=== PATIENT | male | born 1960 | race Caucasian/White ===

== ENCOUNTER 2024-04-30 21:29 | Inpatient (IN) | payer MEDICARE, MEDICAID ==
[~2024-04-30] VITALS: Ht 165.1 cm; Wt 80.9 kg
[~2024-04-30 21:29] MED LIST: CYCL-524 PO; ILOP12TA2 PO; METF-436 PO; MIRT-88 PO; OMEP20CA15 PO; PROP40TA7 PO; SERT100T PO
[2024-04-30 21:54] LABS: HEMOGLOBIN 12.2 g/dl (14.0-17.9); MEAN CORPUSCULAR VOLUME 85.3 FL (78-98); MONOCYTES # (AUTO) 1.4 X10'3 (0-0.9); PLATELET COUNT 204 X10'3 (140-440); RED CELL DISTRIBUTION WIDTH 14.5 % (11.5-14.5)
[2024-04-30 21:56] LABS: BASOPHILS # (AUTO) 0.1 X10'3 (0-0.2); BASOPHILS % (AUTO) 0.5 % (0-1); EOSINOPHILS % (AUTO) 0 % (0-6); HEMATOCRIT 36.5 % (42.0-52.0); LYMPHOCYTES # (AUTO) 0.3 X10'3 (1.1-4.8); LYMPHOCYTES % (AUTO) 1.3 % (21-51); MEAN CORPUSCULAR HEMOGLOBIN 28.5 PG (27.0-31.0); MEAN CORPUSCULAR HGB CONC 33.4 g/dL (33.0-36.5); MONOCYTES % (AUTO) 6.7 % (2-12); NEUTROPHILS # (AUTO) 18.5 X10'3 (1.8-7.7); NEUTROPHILS % (AUTO) 91.5 % (42-75); RED BLOOD COUNT 4.28 X10'6 (4.70-6.10); WHITE BLOOD COUNT 20.2 X10'3 (4.5-11.0)
[2024-04-30 22:13] LABS: ALBUMIN 3.2 G/DL (3.4-5.0); ANION GAP 12 (8-16); BLOOD UREA NITROGEN 19 MG/DL (7-18); BUN/CREATININE RATIO 11.3 (10.0-20.0); CALCIUM 8.9 MG/DL (8.5-10.1); CHLORIDE 102 MMOL/L (99-107); CREATININE 1.68 MG/DL (0.60-1.10); GLUCOSE 239 MG/DL (70-104); POTASSIUM 3.7 MMOL/L (3.5-5.1); PRO BRAIN NATRIURETIC PEPTIDE 412 PG/ML (0-125); SODIUM 139 MMOL/L (135-145); TOTAL CARBON DIOXIDE 24.7 MMOL/L (24-32); eCRCL 40 ML/MIN; eGFR 42 ML/MIN
[2024-05-01] MEDS: normal saline 1000ml 1,000 ML IV ONE (01:16)
[2024-05-01] MEDS: normal saline 1000ML IV soln IVB ONE (01:23)
[2024-05-01 01:31] LABS: APTT 29 SECONDS (22-32); INR 1.1 INR; PROTHROMBIN TIME 11.2 SECONDS (9.0-12.0)
[2024-05-01 03:25] LABS: BILIRUBIN,URINE NEGATIVE (Neg); CLARITY,URINE SLIGHTLY CLOUDY (Clear); COLOR,URINE YELLOW (Yellow); GLUCOSE, URINE 250 mg/dl (Neg); KETONES,URINE TRACE mg/dl (Neg); LEUKOCYTE ESTERASE ,URINE TRACE (Neg); NITRITES, URINE NEGATIVE (Neg); OCCULT BLOOD,URINE LARGE (Neg); PROTEIN,URINE 30 mg/dl (Neg); UROBILINOGEN,URINE 0.2 E.U/dL (0.2-1.0)
[2024-05-01 03:31] LABS: UA COLLECTION TYPE URINAL
[2024-05-01 03:32] LABS: BACTERIA,URINE FEW /HPF (Neg); SQUAMOUS EPITHELIAL CELL,UR FEW /LPF (FEW)
[2024-05-01 03:33] LABS: FINE GRANULAR CAST 0-3 /LPF (NEGATIVE); HYALINE CASTS 0-3 /LPF (NEGATIVE); STARCH,URINE FEW /HPF (NEGATIVE)
[2024-05-01] MEDS ORDERED: DEXTROSE 15 GM of carb/4 tabs (each vial/BOTTLE has 4 tablets) PO PRN ×2 (04:50)
[2024-05-01] MEDS ORDERED: potassium Cl 40MEQ/1/2NS 520ml 520 ML IV PRN (04:50)
[2024-05-01] MEDS ORDERED: potassium Cl 20 mEq SR tablet PO PRN (04:50)
[2024-05-01] MEDS ORDERED: PERFLUTREN PROTEIN-A MICROSPHR (Optison) 0.22 MG/ML 3ML VIAL IV PRN (04:50)
[2024-05-01] MEDS ORDERED: dextrose 50%-water 50ml dispensing syringe IV PRN ×2 (04:50)
[2024-05-01] MEDS ORDERED: magnesium hydroxide 30ml (MOM) UD suspension PO PRN (04:50)
[2024-05-01] MEDS: sodium chloride 0.45% 1,000 ML IV SCH (04:50)
[2024-05-01] MEDS ORDERED: mag hydrox/Alum hydrox/simeth 30ml oral suspension PO PRN (04:50)
[2024-05-01] MEDS ORDERED: magnesium sulf-water 4G/100mL 100 ML IV PRN (04:50)
[2024-05-01] MEDS ORDERED: magnesium Cl slow-release 64mg tablet PO PRN (04:50)
[2024-05-01] MEDS ORDERED: acetaminophen 325mg tablet PO PRN (04:50)
[2024-05-01] MEDS ORDERED: metoclopramide 5 mg/ml inj IV PRN (04:50)
[2024-05-01] MEDS: ringers solution, lacted 1,000 ML IV SCH (05:12)
[2024-05-01 06:07] LABS: MAGNESIUM 1.8 MG/DL (1.5-2.4); POTASSIUM 3.3 MMOL/L (3.5-5.1)
[2024-05-01 06:10] LABS: HEMOGLOBIN A1C 6.7 % (4.5-6.2)
[2024-05-01] MEDS: INSULIN LISPRO 100 UNIT/ML INSULN.PEN MULTI-DOSE SQ SCH (07:49)
[2024-05-01] MEDS: potassium Cl 20 mEq SR tablet PO PRN (07:50)
[2024-05-01] MEDS: docusate sod 100mg capsule PO SCH (07:51)
[2024-05-01] MEDS: pantoprazole 40mg Tablet.DR PO SCH (07:51)
[2024-05-01] MEDS: CefTRIAXone/D5W-Rocephin 1gm 50 ML IV SCH (07:51)
[2024-05-01] MEDS: normal saline 1000ml 1,000 ML IV SCH (09:53)
[2024-05-01] MEDS ORDERED: FERR325T35 PO (10:14)
[2024-05-01] MEDS ORDERED: CARI3CAP PO (10:15)
[2024-05-01] MEDS ORDERED: APIX5TAB3 PO (10:15)
[2024-05-01] MEDS ORDERED: VALB80CA PO (10:16)
[2024-05-01] MEDS ORDERED: SIMV-42 PO (10:17)
[2024-05-01] MEDS ORDERED: ILOP12TA2 PO (10:17)
[2024-05-01] MEDS ORDERED: SERT100T PO (10:18)
[2024-05-01 15:15] LABS: BASOPHILS # (AUTO) 0.1 X10'3 (0-0.2); BASOPHILS % (AUTO) 0.5 % (0-1); EOSINOPHILS # (AUTO) 0.1 X10'3 (0-0.9); EOSINOPHILS % (AUTO) 0.3 % (0-6); HEMOGLOBIN 11.2 g/dl (14.0-17.9); LYMPHOCYTES # (AUTO) 0.7 X10'3 (1.1-4.8); LYMPHOCYTES % (AUTO) 4.4 % (21-51); MEAN CORPUSCULAR HEMOGLOBIN 27.9 PG (27.0-31.0); MEAN CORPUSCULAR HGB CONC 32.1 g/dL (33.0-36.5); MEAN PLATELET VOLUME 9.1 FL (7.4-10.4); MONOCYTES # (AUTO) 0.9 X10'3 (0-0.9); MONOCYTES % (AUTO) 5.4 % (2-12); NEUTROPHILS # (AUTO) 14.7 X10'3 (1.8-7.7); NEUTROPHILS % (AUTO) 89.4 % (42-75); PLATELET COUNT 201 X10'3 (140-440); RED BLOOD COUNT 4.03 X10'6 (4.70-6.10); RED CELL DISTRIBUTION WIDTH 15.1 % (11.5-14.5); WHITE BLOOD COUNT 16.5 X10'3 (4.5-11.0)
[2024-05-01 18:00] VITALS: BP 143/73; PULSE 64; RESP 16; TEMP 98.5; O2SAT 95
[2024-05-01 20:00] VITALS: RESP 16; O2SAT 95
[2024-05-01] MEDS: atorvastatin 20mg tablet PO SCH (20:32)
[2024-05-01] MEDS: ferrous sulfate 325mg tablet PO SCH (20:32)
[2024-05-01] MEDS: sertraline 50mg tablet PO SCH (20:32)
[2024-05-01] MEDS: heparin, porcine 5000 units/ml vial SQ SCH (20:32)
[2024-05-01] MEDS: VALBENAZINE TOSYLATE 80 MG PO SCH (20:44)
[2024-05-01] MEDS: HYDROcodone/acetaminophen 5mg/325mg tablet PO PRN (21:42)
[2024-05-01 22:00] VITALS: BP 139/69; PULSE 65; RESP 16; TEMP 98.8; O2SAT 95
[2024-05-02] VITALS: BP 145/68; PULSE 67; RESP 18; TEMP 98.6; O2SAT 96
[2024-05-02 05:41] LABS: BASOPHILS % (AUTO) 0.3 % (0-1); EOSINOPHILS # (AUTO) 0.2 X10'3 (0-0.9); EOSINOPHILS % (AUTO) 1.2 % (0-6); HEMOGLOBIN 10.9 g/dl (14.0-17.9); LYMPHOCYTES % (AUTO) 7.1 % (21-51); MEAN CORPUSCULAR HEMOGLOBIN 27.4 PG (27.0-31.0); MEAN CORPUSCULAR HGB CONC 31.9 g/dL (33.0-36.5); MEAN CORPUSCULAR VOLUME 85.8 FL (78-98); MEAN PLATELET VOLUME 9.4 FL (7.4-10.4); MONOCYTES # (AUTO) 0.8 X10'3 (0-0.9); MONOCYTES % (AUTO) 6.2 % (2-12); NEUTROPHILS # (AUTO) 11.5 X10'3 (1.8-7.7); NEUTROPHILS % (AUTO) 85.2 % (42-75); PLATELET COUNT 199 X10'3 (140-440); RED BLOOD COUNT 3.97 X10'6 (4.70-6.10); RED CELL DISTRIBUTION WIDTH 15.2 % (11.5-14.5); WHITE BLOOD COUNT 13.5 X10'3 (4.5-11.0)
[2024-05-02 06:00] VITALS: BP 143/73; PULSE 64; RESP 16; TEMP 98.6; O2SAT 95
[2024-05-02 06:00] LABS: ALANINE AMINOTRANSFERASE 25 U/L (12-78); ALBUMIN 2.5 G/DL (3.4-5.0); ALBUMIN/GLOBULIN RATIO 0.7 (1.1-1.5); ALKALINE PHOSPHATASE 71 IU/L (46-116); ANION GAP 8 (8-16); ASPARTATE AMINO TRANSFERASE 34 U/L (10-37); BILIRUBIN,TOTAL 0.3 MG/DL (0.1-1.0); BLOOD UREA NITROGEN 14 MG/DL (7-18); BUN/CREATININE RATIO 15.7 (10.0-20.0); CALCIUM 8.4 MG/DL (8.5-10.1); CHLORIDE 108 MMOL/L (99-107); CHOL/HDL RATIO 2.7 (0.00-4.99); CHOLESTEROL 122 MG/DL (0-200); CREATININE 0.89 MG/DL (0.60-1.10); GLUCOSE 140 MG/DL (70-104); HDL CHOLESTEROL 45 MG/DL (35-60); LDL CHOLESTEROL 58 MG/DL (50-100); MAGNESIUM 1.7 MG/DL (1.5-2.4); POTASSIUM 3.6 MMOL/L (3.5-5.1); SODIUM 141 MMOL/L (135-145); TOTAL CARBON DIOXIDE 25.1 MMOL/L (24-32); TOTAL PROTEIN 6.2 G/DL (6.4-8.2); TRIGLYCERIDES 94 MG/DL (20-135); eCRCL 75 ML/MIN; eGFR 87 ML/MIN
[2024-05-02 08:00] VITALS: RESP 16; O2SAT 95
[2024-05-02] MEDS: ILOPERIDONE 12 MG PO SCH (08:00)
[2024-05-02] MEDS: CARIPRAZINE 1.5 MG CAPSULE PO SCH (08:46)
[2024-05-02 18:00] VITALS: BP 170/87; PULSE 66; RESP 16; TEMP 98.2; O2SAT 95
[2024-05-02 20:00] VITALS: RESP 16; O2SAT 95
[2024-05-02 22:00] VITALS: BP 185/91; PULSE 77; RESP 18; TEMP 97.7; O2SAT 92
[2024-05-03 05:00] VITALS: BP 186/92; PULSE 70; RESP 20; TEMP 97; O2SAT 91
[2024-05-03] MEDS: hydrALAZINE 20mg/ml inj. IV ONE ×2 (05:34→05:36)
[2024-05-03 05:36] VITALS: BP_SYST 186; PULSE 88
[2024-05-03 06:00] LABS: BASOPHILS % (AUTO) 0.4 % (0-1); EOSINOPHILS # (AUTO) 0.1 X10'3 (0-0.9); EOSINOPHILS % (AUTO) 0.5 % (0-6); HEMOGLOBIN 11.1 g/dl (14.0-17.9); LYMPHOCYTES # (AUTO) 0.7 X10'3 (1.1-4.8); LYMPHOCYTES % (AUTO) 5.8 % (21-51); MEAN CORPUSCULAR HGB CONC 32.7 g/dL (33.0-36.5); MEAN CORPUSCULAR VOLUME 85.7 FL (78-98); MEAN PLATELET VOLUME 9.5 FL (7.4-10.4); MONOCYTES # (AUTO) 0.7 X10'3 (0-0.9); MONOCYTES % (AUTO) 5.3 % (2-12); PLATELET COUNT 242 X10'3 (140-440); RED BLOOD COUNT 3.97 X10'6 (4.70-6.10); RED CELL DISTRIBUTION WIDTH 14.8 % (11.5-14.5); WHITE BLOOD COUNT 12.5 X10'3 (4.5-11.0)
[2024-05-03 06:16] LABS: ALANINE AMINOTRANSFERASE 27 U/L (12-78); ALBUMIN 2.5 G/DL (3.4-5.0); ALBUMIN/GLOBULIN RATIO 0.6 (1.1-1.5); ALKALINE PHOSPHATASE 76 IU/L (46-116); ANION GAP 4 (8-16); ASPARTATE AMINO TRANSFERASE 26 U/L (10-37); BILIRUBIN,TOTAL 0.3 MG/DL (0.1-1.0); BLOOD UREA NITROGEN 16 MG/DL (7-18); BUN/CREATININE RATIO 17.6 (10.0-20.0); CALCIUM 8.9 MG/DL (8.5-10.1); CHLORIDE 108 MMOL/L (99-107); CREATININE 0.91 MG/DL (0.60-1.10); GLUCOSE 150 MG/DL (70-104); MAGNESIUM 1.8 MG/DL (1.5-2.4); POTASSIUM 3.8 MMOL/L (3.5-5.1); SODIUM 140 MMOL/L (135-145); TOTAL CARBON DIOXIDE 27.6 MMOL/L (24-32); TOTAL PROTEIN 6.6 G/DL (6.4-8.2); eCRCL 73 ML/MIN; eGFR 84 ML/MIN
[2024-05-03 08:00] VITALS: RESP 16; O2SAT 95
[2024-05-03] MEDS: lisinopril 20mg tablet PO SCH (09:45)
[2024-05-03] MEDS: amLODIPine 5mg tablet PO SCH (09:45)
[2024-05-03] MEDS ORDERED: LISI20TA28 PO (12:35)
[2024-05-03] MEDS ORDERED: RIFA300C65 PO (12:36)
[2024-05-03] MEDS ORDERED: NOR5T PO (12:41)
== END 2024-05-03 15:36 | disposition home or self-care (01) | DRG 871 ==
LOC: ER 21:30 → ED HOLD 05-01 01:43 → UNDOADMIN 05-01 01:43 → ED HOLD 05-01 04:54 → ORTHO 4S 05-01 14:05 → ED HOLD 05-01 14:05 → UNDODISIN 05-03 15:36
PROVIDERS: ADMIT Internal Medicine Critical Care Medicine; ATTEND Internal Medicine
DX: A41.9 Sepsis, unspecified organism (principal); I21.A1 Myocardial infarction type 2; N39.0 Urinary tract infection, site not specified; N17.9 Acute kidney failure, unspecified; I95.1 Orthostatic hypotension; E11.9 Type 2 diabetes mellitus without complications; I10 Essential (primary) hypertension; E78.00 Pure hypercholesterolemia, unspecified; F31.9 Bipolar disorder, unspecified; R31.9 Hematuria, unspecified; Z20.822 Contact with and (suspected) exposure to COVID-19; F20.9 Schizophrenia, unspecified; F29 Unspecified psychosis not due to a substance or known physiological condition; Z79.899 Other long term (current) drug therapy; Z79.84 Long term (current) use of oral hypoglycemic drugs; Z88.8 Allergy status to other drugs, medicaments and biological substances; Z90.49 Acquired absence of other specified parts of digestive tract; I25.2 Old myocardial infarction; Z86.73 Personal history of transient ischemic attack (TIA), and cerebral infarction without residual deficits; Z83.3 Family history of diabetes mellitus; Z87.891 Personal history of nicotine dependence
CPT/HCPCS: 36415; 70450; 70551; 71045; 80048; 80053; 80061; 81001; 82948; 83036; 83605; 83735; 83880; 84132; 84145; 84484; 85025; 85379; 85610; 85730; 87077; 87081; 87088; 87186; 87811; 92508; 92616; 93005; 93306; 96360; 97116; 97161; 97530; 99285; A6250; A6590; G0378; J0360; J0696; J1644; J1815; J7030; J7120

== ENCOUNTER 2024-05-06 10:44 | Inpatient (IN) | payer MEDICARE, MEDICAID ==
[~2024-05-06] VITALS: Ht 165.1 cm; Wt 80.5 kg
[~2024-05-06 10:44] MED LIST changes: +APIX5TAB3 PO; +CARI3CAP PO; -CYCL-524 PO; +FERR325T35 PO; +LISI20TA28 PO; -MIRT-88 PO; +NOR5T PO; -OMEP20CA15 PO; -PROP40TA7 PO; +RIFA300C65 PO; +SIMV-42 PO; +VALB80CA PO
[2024-05-06 12:31] LABS: CLARITY,URINE CLOUDY (Clear); COLOR,URINE ORANGE (Yellow)
[2024-05-06 12:36] LABS: BASOPHILS % (AUTO) 0.6 % (0-1); EOSINOPHILS # (AUTO) 0.1 X10'3 (0-0.9); EOSINOPHILS % (AUTO) 1.3 % (0-6); LYMPHOCYTES # (AUTO) 0.7 X10'3 (1.1-4.8); LYMPHOCYTES % (AUTO) 9.8 % (21-51); MEAN CORPUSCULAR HEMOGLOBIN 28.7 PG (27.0-31.0); MEAN CORPUSCULAR HGB CONC 33.5 g/dL (33.0-36.5); MEAN CORPUSCULAR VOLUME 85.6 FL (78-98); MEAN PLATELET VOLUME 8.7 FL (7.4-10.4); MONOCYTES # (AUTO) 0.6 X10'3 (0-0.9); MONOCYTES % (AUTO) 7.8 % (2-12); NEUTROPHILS # (AUTO) 6.1 X10'3 (1.8-7.7); NEUTROPHILS % (AUTO) 80.5 % (42-75); PLATELET COUNT 334 X10'3 (140-440); RED CELL DISTRIBUTION WIDTH 14.8 % (11.5-14.5); WHITE BLOOD COUNT 7.5 X10'3 (4.5-11.0)
[2024-05-06 12:40] LABS: ALBUMIN 2.6 G/DL (3.4-5.0); ANION GAP 4 (8-16); BLOOD UREA NITROGEN 20 MG/DL (7-18); BUN/CREATININE RATIO 16.8 (10.0-20.0); CALCIUM 9.2 MG/DL (8.5-10.1); CHLORIDE 107 MMOL/L (99-107); CREATININE 1.19 MG/DL (0.60-1.10); GLUCOSE 139 MG/DL (70-104); POTASSIUM 3.6 MMOL/L (3.5-5.1); SODIUM 140 MMOL/L (135-145); TOTAL CARBON DIOXIDE 28.9 MMOL/L (24-32); eCRCL 56 ML/MIN; eGFR 62 ML/MIN
[2024-05-06 12:52] LABS: MUCUS STRANDS MANY /LPF (Neg)
[2024-05-06 12:53] LABS: CAL OXALATE CRYSTALS FEW /HPF (NEGATIVE)
[2024-05-06 12:58] LABS: BACTERIA,URINE 1+ /HPF (Neg); RBC,URINE 0-2 /HPF (0-2)
[2024-05-06 12:59] LABS: SQUAMOUS EPITHELIAL CELL,UR FEW /LPF (FEW); UA COLLECTION TYPE VOIDED
[2024-05-06] MEDS ORDERED: CEPH-585 PO (14:02)
[2024-05-06] MEDS: CefTRIAXone/D5W-Rocephin 1gm 50 ML IV ONE (14:21)
[2024-05-06] MEDS: normal saline 1000ml 1,000 ML IV STA (14:22)
--- NOTE | 2024-05-06 15:51 | NUR ---
SPOKE TO SS, PER ZECHARIAH SHE IS ON HER WAY TO SEE THE PT.
[2024-05-06] MEDS ORDERED: potassium Cl 40MEQ/1/2NS 520ml 520 ML IV PRN (20:50)
[2024-05-06] MEDS ORDERED: mag hydrox/Alum hydrox/simeth 30ml oral suspension PO PRN (20:50)
[2024-05-06] MEDS ORDERED: magnesium hydroxide 30ml (MOM) UD suspension PO PRN (20:50)
[2024-05-06] MEDS ORDERED: potassium Cl 20 mEq SR tablet PO PRN ×2 (20:50)
[2024-05-06] MEDS ORDERED: magnesium Cl slow-release 64mg tablet PO PRN (20:50)
[2024-05-06] MEDS ORDERED: magnesium sulf-water 2g/50mL 50 ML IV PRN (20:50)
[2024-05-06] MEDS ORDERED: acetaminophen 325mg tablet PO PRN (20:50)
[2024-05-06] MEDS ORDERED: ondansetron/PF 4mg/2ml inj IV PRN (20:50)
[2024-05-06] MEDS ORDERED: magnesium sulf-water 4G/100mL 100 ML IV PRN (20:50)
--- NOTE | 2024-05-06 21:46 | NUR ---
Patient in room . I have received report from PATRICIA OSBORN in ER and had the opportunity to ask questions and will assume patient care when patient arrives.
[2024-05-06 22:00] VITALS: BP 177/90; PULSE 75; RESP 18; TEMP 97.4; O2SAT 94
[2024-05-06] MEDS: hydrALAZINE 20mg/ml inj. IV PRN (23:36)
--- NOTE | 2024-05-07 00:46 | NUR ---
MEDICATION REVIEWED WITH PATIENT AND MD NOTIFIED TO VERIFY MEDS. Addendum: 05/07/24 at 0047 by Lorraine Alexandra RN Amended: Links added.
[2024-05-07 04:30] LABS: BASOPHILS # (AUTO) 0.1 X10'3 (0-0.2); BASOPHILS % (AUTO) 0.8 % (0-1); EOSINOPHILS # (AUTO) 0.2 X10'3 (0-0.9); EOSINOPHILS % (AUTO) 2.7 % (0-6); HEMATOCRIT 34.3 % (42.0-52.0); HEMOGLOBIN 11.4 g/dl (14.0-17.9); LYMPHOCYTES % (AUTO) 11.6 % (21-51); MEAN CORPUSCULAR HEMOGLOBIN 28.6 PG (27.0-31.0); MEAN CORPUSCULAR HGB CONC 33.3 g/dL (33.0-36.5); MEAN CORPUSCULAR VOLUME 85.9 FL (78-98); MEAN PLATELET VOLUME 8.3 FL (7.4-10.4); MONOCYTES # (AUTO) 0.7 X10'3 (0-0.9); MONOCYTES % (AUTO) 8.9 % (2-12); NEUTROPHILS # (AUTO) 6.3 X10'3 (1.8-7.7); PLATELET COUNT 336 X10'3 (140-440); RED CELL DISTRIBUTION WIDTH 15.2 % (11.5-14.5); WHITE BLOOD COUNT 8.3 X10'3 (4.5-11.0)
[2024-05-07 04:38] LABS: ALBUMIN 2.5 G/DL (3.4-5.0); ANION GAP 13 (8-16); BLOOD UREA NITROGEN 21 MG/DL (7-18); BUN/CREATININE RATIO 20.6 (10.0-20.0); CALCIUM 8.7 MG/DL (8.5-10.1); CHLORIDE 106 MMOL/L (99-107); CREATININE 1.02 MG/DL (0.60-1.10); GLUCOSE 117 MG/DL (70-104); POTASSIUM 3.6 MMOL/L (3.5-5.1); SODIUM 142 MMOL/L (135-145); TOTAL CARBON DIOXIDE 23.5 MMOL/L (24-32); eCRCL 65 ML/MIN; eGFR 74 ML/MIN
[2024-05-07 06:00] VITALS: BP 141/62; PULSE 70; RESP 19; TEMP 97.9; O2SAT 95
--- NOTE | 2024-05-07 06:42 | NUR ---
Problems reprioritized. Patient report given, questions answered & plan of care reviewed with LEISA OSBORN/ TIBURCIO OSBORN.
--- NOTE | 2024-05-07 07:03 | NUR ---
Patient in room [facility]. I have received report from GABRIELA OSBORN and had the opportunity to ask questions and assume patient care.
[2024-05-07] MEDS: ILOPERIDONE 12 MG PO SCH (08:00)
[2024-05-07] MEDS: K and/or MAG REPLACEMENT MC SCH (08:00)
[2024-05-07] MEDS: apixaban 5mg tablet PO SCH (08:14)
[2024-05-07] MEDS: ferrous sulfate 325mg tablet PO SCH (08:14)
[2024-05-07] MEDS: docusate sod 100mg capsule PO SCH (08:14)
[2024-05-07] MEDS: lisinopril 20mg tablet PO SCH (08:15)
[2024-05-07] MEDS: amLODIPine 5mg tablet PO SCH (08:15)
[2024-05-07] MEDS: CARIPRAZINE 1.5 MG CAPSULE PO SCH (08:16)
--- NOTE | 2024-05-07 08:18 | NUR ---
MEDICATION ILOPERIDONE STILL NOT AVAILABLE, CAREGIVER HAS TO BE CONTACTED. WILL TRY TO CONTACT. MD WILL BE NOTIFIED.
[2024-05-07 09:00] VITALS: RESP 16; O2SAT 95
[2024-05-07 10:00] VITALS: BP 114/60; PULSE 78; RESP 16; TEMP 97.9; O2SAT 94
[2024-05-07] MEDS: INSULIN LISPRO 100 UNIT/ML INSULN.PEN MULTI-DOSE SQ SCH (13:24)
[2024-05-07 18:00] VITALS: BP 160/90; PULSE 77; RESP 16; TEMP 98; O2SAT 94
--- NOTE | 2024-05-07 18:38 | NUR ---
Problems reprioritized. Patient report given TO ANNI OSBORN, questions answered & plan of care reviewed with .
[2024-05-07] MEDS ORDERED: enoxaparin 40mg/0.4ml syringe SQ SCH (20:00)
[2024-05-07] MEDS: sertraline 50mg tablet PO SCH (21:54)
[2024-05-07] MEDS: simvastatin 20mg tablet PO SCH (21:54)
[2024-05-07 22:00] VITALS: BP 159/87; PULSE 67; RESP 18; TEMP 98.6; O2SAT 92
[2024-05-08] VITALS (7 sets, daily range): BP systolic 109–184; BP diastolic 50–89; PULSE 59–91; RESP 18–20; TEMP 97.6–98.1; O2SAT 93–97
--- NOTE | 2024-05-08 06:39 | NUR ---
Patient in room [facility]. I have received report from Christie OSBORN and had the opportunity to ask questions and assume patient care.
[2024-05-08 06:59] LABS: BASOPHILS % (AUTO) 0.6 % (0-1); EOSINOPHILS # (AUTO) 0.2 X10'3 (0-0.9); EOSINOPHILS % (AUTO) 2.5 % (0-6); HEMATOCRIT 37.1 % (42.0-52.0); HEMOGLOBIN 12.1 g/dl (14.0-17.9); LYMPHOCYTES # (AUTO) 1.2 X10'3 (1.1-4.8); LYMPHOCYTES % (AUTO) 15.4 % (21-51); MEAN CORPUSCULAR HEMOGLOBIN 27.8 PG (27.0-31.0); MEAN CORPUSCULAR HGB CONC 32.5 g/dL (33.0-36.5); MEAN CORPUSCULAR VOLUME 85.6 FL (78-98); MEAN PLATELET VOLUME 8.8 FL (7.4-10.4); MONOCYTES # (AUTO) 0.8 X10'3 (0-0.9); MONOCYTES % (AUTO) 10.5 % (2-12); NEUTROPHILS # (AUTO) 5.7 X10'3 (1.8-7.7); PLATELET COUNT 368 X10'3 (140-440); RED BLOOD COUNT 4.33 X10'6 (4.70-6.10); RED CELL DISTRIBUTION WIDTH 14.9 % (11.5-14.5)
[2024-05-08 07:21] LABS: ALBUMIN 2.7 G/DL (3.4-5.0); ANION GAP 8 (8-16); BLOOD UREA NITROGEN 30 MG/DL (7-18); BUN/CREATININE RATIO 28.6 (10.0-20.0); CALCIUM 9.4 MG/DL (8.5-10.1); CHLORIDE 106 MMOL/L (99-107); CREATININE 1.05 MG/DL (0.60-1.10); GLUCOSE 184 MG/DL (70-104); POTASSIUM 3.6 MMOL/L (3.5-5.1); SODIUM 141 MMOL/L (135-145); TOTAL CARBON DIOXIDE 26.6 MMOL/L (24-32); eCRCL 63 ML/MIN; eGFR 72 ML/MIN
--- NOTE | 2024-05-08 12:55 | NUR ---
patito perez from [facility] in [facility], Pam has accepted pt and he can go tomorrow-msg sent to PT to see if they are able to see pt today since he will not be discharged until tomorrow
--- NOTE | 2024-05-08 13:46 | NUR ---
PAGER ID: [phone] MESSAGE: [phone] Hardik is 63/48 currently. Iris OSBORN [id number] Addendum: 05/08/24 at 1347 by Iris Macias RN Order received to give 500cc bolus.
[2024-05-08] MEDS: normal saline 500ml IV soln 500 ML IV ONE (13:58)
[2024-05-08] MEDS: normal saline 1000ml 1,000 ML IV SCH (14:28)
--- NOTE | 2024-05-08 18:00 | NUR ---
orientee documentation: I have reviewed and agree with all interventions, assessments performed and documented by Nasir Lopes RN .
--- NOTE | 2024-05-08 18:28 | NUR ---
Problems reprioritized. Patient report given, questions answered & plan of care reviewed with Ruben BRAY.
[2024-05-08] MEDS: insulin glargine (Lantus) pen - multi-dose SQ SCH (21:56)
--- NOTE | 2024-05-08 23:38 | NUR ---
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
[2024-05-09 05:00] VITALS: BP 162/94; PULSE 69; RESP 24; TEMP 97.7; O2SAT 95
[2024-05-09 06:07] LABS: ALBUMIN 2.5 G/DL (3.4-5.0); ANION GAP 8 (8-16); BLOOD UREA NITROGEN 33 MG/DL (7-18); CALCIUM 9.1 MG/DL (8.5-10.1); CHLORIDE 109 MMOL/L (99-107); CREATININE 1.03 MG/DL (0.60-1.10); GLUCOSE 163 MG/DL (70-104); POTASSIUM 3.7 MMOL/L (3.5-5.1); SODIUM 145 MMOL/L (135-145); TOTAL CARBON DIOXIDE 27.7 MMOL/L (24-32); eCRCL 65 ML/MIN; eGFR 73 ML/MIN
[2024-05-09 06:19] LABS: BASOPHILS # (AUTO) 0.1 X10'3 (0-0.2); BASOPHILS % (AUTO) 0.7 % (0-1); EOSINOPHILS # (AUTO) 0.2 X10'3 (0-0.9); EOSINOPHILS % (AUTO) 2.8 % (0-6); HEMATOCRIT 34.4 % (42.0-52.0); HEMOGLOBIN 11.4 g/dl (14.0-17.9); LYMPHOCYTES % (AUTO) 12.4 % (21-51); MEAN CORPUSCULAR HEMOGLOBIN 28.4 PG (27.0-31.0); MEAN CORPUSCULAR HGB CONC 33.1 g/dL (33.0-36.5); MEAN CORPUSCULAR VOLUME 85.9 FL (78-98); MEAN PLATELET VOLUME 8.9 FL (7.4-10.4); MONOCYTES # (AUTO) 0.7 X10'3 (0-0.9); MONOCYTES % (AUTO) 8.3 % (2-12); NEUTROPHILS # (AUTO) 6.2 X10'3 (1.8-7.7); NEUTROPHILS % (AUTO) 75.8 % (42-75); PLATELET COUNT 335 X10'3 (140-440); WHITE BLOOD COUNT 8.2 X10'3 (4.5-11.0)
--- NOTE | 2024-05-09 06:24 | NUR ---
Problems reprioritized. Patient report given, questions answered & plan of care reviewed with Tiffanie BENJAMIN.
[2024-05-09 08:00] VITALS: RESP 16; O2SAT 95
[2024-05-09 08:40] VITALS: BP 133/62; PULSE 84; RESP 18; O2SAT 95
[2024-05-09 10:00] VITALS: BP 101/53; PULSE 79; RESP 16; TEMP 98.1; O2SAT 94
--- NOTE | 2024-05-09 10:12 | NUR ---
Paged [facility]IL[facility] Law [phone] Transfer paperwork have been signed by .
--- NOTE | 2024-05-09 13:00 | NUR ---
pc to [facility] [phone], spoke with Shama charge nurse to give report-all questions answered. Spoke with pt and he has called his mom to let her know plan
--- NOTE | 2024-05-09 13:30 | NUR ---
patito mooreg from [facility] charge nurse nurse that Dr Henderson needs to add lisinopril to his medications-after MD updated transfer orders, pc to Shama at [facility] to update and orders re-faxed to [phone]
--- NOTE | 2024-05-09 14:00 | NUR ---
transport agency arrived with krzysztof, pt able to stand up with 1 person assist, ambulated 15 feet with FWW to [facility]. PC to pt's mom Mary to update on tx to [facility] now. Pt transported with all belongings-home meds retrieved from pharm and sent with pt's packet to SNF.
== END 2024-05-09 14:03 | DRG 683 ==
LOC: ER 10:45 → SUR 3N 20:52
PROVIDERS: ADMIT Internal Medicine Critical Care Medicine; ATTEND Family Medicine
DX: N17.9 Acute kidney failure, unspecified (principal); N39.0 Urinary tract infection, site not specified; E11.9 Type 2 diabetes mellitus without complications; I10 Essential (primary) hypertension; F20.9 Schizophrenia, unspecified; F31.9 Bipolar disorder, unspecified; E78.00 Pure hypercholesterolemia, unspecified; I95.9 Hypotension, unspecified; I25.2 Old myocardial infarction; Z79.01 Long term (current) use of anticoagulants; Z79.84 Long term (current) use of oral hypoglycemic drugs; Z79.899 Other long term (current) drug therapy; Z88.8 Allergy status to other drugs, medicaments and biological substances; Z87.891 Personal history of nicotine dependence; Z83.3 Family history of diabetes mellitus; R53.81 Other malaise
CPT/HCPCS: 36415; 71045; 80048; 81001; 82948; 83605; 84145; 85025; 87040; 87081; 87088; 96365; 96375; 97161; 97530; 97535; 99285; A6446; A6449; A6590; G0378; J0360; J0696; J1815; J7030; J7040